=== PATIENT | male | born 1990 | race Two or more races ===

== ENCOUNTER 2017-03-02 17:37 | Emergency (ER) | payer SELFPAY ==
[2017-03-02 17:50] VITALS: RESP 18; TEMP 98
--- NOTE | 2017-03-02 18:34 | EDPHY ---
H & P Time Seen by Provider: 03/02/17 18:22 Smoking Status: Light smoker Constitutional: Initial Vital Signs Temperature (C) 36.6 C 03/02/17 17:47 Heart Rate 95 03/02/17 17:47 Respiratory Rate 18 03/02/17 17:47 Blood Pressure 122/62 H 03/02/17 17:47 O2 Sat (%) 95 03/02/17 17:47 O2 Delivery Mode Room Air Allergies/Adverse Reactions: bee pollen [Bee Pollen] Allergy (Verified 05/01/11 09:53) beeswax [Beeswax] Allergy (Verified 05/01/11 09:53) Home Medications: Medication Instructions Recorded NO HOME MEDICATIONS 05/01/11 MDM/Departure - MDM Imaging Results: Imaging Impressions Finger X-Ray 03/02/17 17:50 Impression: Negative radiographs of the right third finger. - Depart Disposition: Home, Routine, Self-Care Clinical Impression: Fingertip contusion Qualifiers: Encounter type: initial encounter Qualified Code(s): S60.00XA - Contusion of unspecified finger without damage to nail, initial encounter Condition: Good Instructions: Contusion in Adults (ED) Additional Instructions: Diagnosis: Finger tip contusion Plan: Ice 20 minutes at a time 3 times a day for the next few days until symptoms improve Ibuprofen Tylenol in addition as needed for pain With stack splint for comfort while at work for protection if you like. Symptoms should improve over the next 3-7 days Referrals: NONE *PRIMARY CARE P,. [Primary Care Provider] - As per Instructions
[2017-03-02 18:54] VITALS: BP 135/62; PULSE 75; O2SAT 97
== END 2017-03-02 18:52 | disposition home or self-care (01) ==
LOC: CED 17:37
DX: S60.031A Contusion of right middle finger without damage to nail, initial encounter (principal); F17.200 Nicotine dependence, unspecified, uncomplicated; W23.0XXA Caught, crushed, jammed, or pinched between moving objects, initial encounter
CPT/HCPCS: 73140-PO; L3925